=== PATIENT | female | born 1935 | race Caucasian/White ===

== ENCOUNTER 2017-12-03 22:58 | Inpatient (IN) ==
[2017-12-04] MEDS ORDERED: Acetaminophen 325 MG Tablet PO PRN (03:09)
[2017-12-04 10:06] LABS: Baso % (Auto) 0.7 % (0.0-2.0); Eos # (Auto) 0.1 th/mm3 (0.0-0.4); Eos % (Auto) 1.1 % (0.0-4.0); Hemoglobin 13.8 gm/dL (11.6-15.3); Lymph # (Auto) 1.9 th/mm3 (1.0-4.8); Lymph % (Auto) 30.9 % (9.0-44.0); Mean Corpuscular HGB Conc 32.9 % (32.0-36.0); Mean Corpuscular Hemoglobin 32.8 pg (27.0-34.0); Mean Corpuscular Volume 99.7 fL (80.0-100.0); Mean Platelet Volume 9.3 fL (7.0-11.0); Mono # (Auto) 0.6 th/mm3 (0.0-0.9); Mono % (Auto) 9.3 % (0.0-8.0); Neut # (Auto) 3.6 th/mm3 (1.8-7.7); Platelet Count 178 th/mm3 (150-450); Red Blood Count 4.21 mil/mm3 (4.00-5.30); Red Cell Distribution Width 13.9 % (11.6-17.2); White Blood Count 6.2 th/mm3 (4.0-11.0)
[2017-12-04 10:31] LABS: Albumin 3.8 g/dL (3.4-5.0); Anion Gap 10 meq/L (5-15); Aspartate Aminotransferase 15 U/L (15-37); Blood Urea Nitrogen 18 mg/dL (7-18); Calcium 9.5 mg/dL (8.5-10.1); Chloride 106 meq/L (98-107); Glomerular Filtration Rate 37 mL/min (>89); Glucose,Random 101 mg/dL (74-106); Potassium 3.6 meq/L (3.5-5.1); Sodium 142 meq/L (136-145)
[2017-12-04 10:32] LABS: Alanine Aminotransferase 12 U/L (10-53)
[2017-12-04 10:33] LABS: Magnesium 1.9 mg/dL (1.5-2.5)
[2017-12-04 10:34] LABS: Alkaline Phosphatase 102 U/L (45-117)
[2017-12-04 10:42] LABS: Thyroid Stimulating Hormone 1.96 uIU/mL (0.358-3.740)
--- NOTE | 2017-12-04 14:05 | P.CONIM ---
History of Present Illness Service: [facility] Consult date: 12/04/17 Reason for Consult: UTI, HTN, elevated creat, medical management Primary Care Provider: Oracio Granger Chief Complaint: chronic pain History of Present Illness: This is an 82 years old female with past medical history of peripheral neuropathy, aneurysm of thoracic aorta, obstructive sleep apnea, osteoarthritis , hypertension, allergic rhinitis, attention deficit disorder, anxiety and depression, who presented to [facility] ED with the complaints of altered mental status. Patient reported to the ED staff that she "no longer wants to live" and that she was a burden to her daughter. It was also reported by the daughter the a week ago she had hallucination and believed that the SAT team was outside with her grandson who was holding a gun. The daughter reported that her suicidal ideation was not new. Patient was evaluated and treated for UTI at the [facility] ED and was transferred her to [facility] for evaluation and management other hallucination and suicidal ideation. Patient is being seen by us, the Medicine team for medical management. Patient seen and evaluated sitting int he side of the bed, stated she lives in [facility]. Patient complaints of left shoulder pain which is chronic for her , she had a fall 4 years ago that needed to have a left shoulder surgery. Patient stated she has been going to the pain clinic but stopped but stopped going, stated "it's too much.". She stated her pain was relieved with a patch, and stated she does not want to take the [place], stated she does not want to be addicted to it. Patient denies any head ache, fever or chills, denies any nausea or vomiting, denies diarrhea or constipation. Pat was not able to identify the other medications she was taking, stated she was taking a bunch but do not remember the names. Patient was not able to state her past medical history other than the shoulder surgery and bilateral knee surgery. Most of the past medical history was obtained from the [facility] record. Review of Systems All other systems reviewed negative except as stated in [facility] - History History Provided By: Patient - Medical History Medical History: Medical History (Last Updated 12/04/17 @ 13:44 by EMILY Monsivais) Aneurysm of thoracic aorta Anxiety Attention deficit disorder Depression Hypertension Osteoarthritis Peripheral neuropathy - Surgical History Surgical History: Surgical History (Last Updated 12/04/17 @ 04:06 by Gita Felix RN) History of bilateral knee arthroplasty History of herniorrhaphy History of total thyroidectomy S/P aneurysm repair - Family History Family History: Family History (Last Updated 12/04/17 @ 04:09 by Gita Felix RN) Father Depression Brother Bipolar 1 disorder - Tobacco History Smoking Status: Never smoker - Alcohol History How Often Do You Have a Drink Containing Alcohol: Never - Substance Use History Substance History: No History of Abuse - Immunization History Tetanus Immunization: Unsure Hx Influenza Vaccine This Season: Yes Medications and Allergies Active Medications: Active Medications Acetaminophen (Tylenol) 650 mg PO Q4H PRN PRN Reason: Pain 1-5 or Temp >101F Al Hydrox/Mg Hydrox/Simethicone (Mag-Al Plus Susp Liq) 30 ml PO Q6H PRN PRN Reason: DYSPEPSIA Al Hydroxide/Mg Hydroxide (Milk Of Magnesia Liq) 30 ml PO DAILY PRN PRN Reason: CONSTIPATION Clonidine HCl (Catapres) 0.1 mg PO Q6H PRN PRN Reason: HYPERTENSION Allergies Allergy/AdvReac Type Severity Reaction Status Date / Time No Known Allergies Allergy Unverified 12/04/17 02:13 Home Medications Medication Instructions Recorded Confirmed Type alprazolam [Xanax] 0.25 mg PO Q8HR PRN 12/04/17 12/04/17 History duloxetine [Cymbalta] 30 mg PO BID 12/04/17 12/04/17 History gabapentin 400 mg PO TID 12/04/17 12/04/17 History hydrocodone bitartrate [Zohydro ER] 10 mg PO Q8H PRN 12/04/17 12/04/17 History levothyroxine 25 mcg PO DAILY 12/04/17 12/04/17 History Exam Vital signs: Vital Signs 12/04/17 00:30 12/04/17 03:07 12/04/17 06:00 Temperature 98.0 F 97.6 F Pulse Rate 95 H 74 Respiratory Rate 18 16 18 Blood Pressure 131/91 H 106/58 L Pulse Oximetry 96 Intake & Output 12/03/17 12/04/17 12/04/17 18:59 06:59 18:59 Intake Total 240 / 240 Balance 240 / 240 Weight 64.864 kg Intake: Oral 240 / 240 Other: Weight On Admission 64.864 kg Narrative: GENERAL: awake, alert and oriented x 3, well built, well nourished, with no apparent distress SKIN: Warm and dry. left shoulder and bilateral knee old and healed surgical incision scars HEAD: Atraumatic. Normocephalic. EYES: Pupils equal and round. No scleral icterus. No injection or drainage. ENT: No nasal bleeding or discharge. Mucous membranes pink and moist. NECK: Trachea midline. No JVD. CARDIOVASCULAR: Regular rate and rhythm. RESPIRATORY: No accessory muscle use. Clear to auscultation. Breath sounds equal bilaterally. GASTROINTESTINAL: Abdomen soft, non-tender, nondistended. Hepatic and splenic margins not palpable. MUSCULOSKELETAL: Extremities without clubbing, cyanosis, or edema. left upper extremities limited range of motion, right hand contraction NEUROLOGICAL: Awake and alert. No obvious cranial nerve deficits. Motor grossly within normal limits. Normal speech. PSYCHIATRIC: Appropriate mood and affect; insight and judgment unrealiable, cooperative, tearful Results - Labs CBC & Chem 7: 12/04/17 09:47 12/04/17 09:47 Labs: Laboratory Results - last 24 hr 12/04/17 12/04/17 12/04/17 09:47 09:47 09:47 WBC 6.2 RBC 4.21 Hgb 13.8 Hct 42.0 MCV 99.7 MCH 32.8 MCHC 32.9 RDW 13.9 Plt Count 178 MPV 9.3 Neut % (Auto) 58.0 Lymph % (Auto) 30.9 [place] % (Auto) 9.3 H Eos % (Auto) 1.1 Baso % (Auto) 0.7 Neut # (Auto) 3.6 Lymph # (Auto) 1.9 [place] # (Auto) 0.6 Eos # (Auto) 0.1 Baso # (Auto) 0.0 WBC Differential . Differential Comment Auto diff final Sodium 142 Potassium 3.6 Chloride 106 Carbon Dioxide 26.0 Anion Gap 10 BUN 18 Creatinine 1.36 H Estimated GFR 37 L Random Glucose 101 Calcium 9.5 Phosphorus Magnesium Total Bilirubin 0.6 AST 15 ALT 12 Alkaline Phosphatase 102 Total Protein 7.0 Albumin 3.8 TSH Free T4 1.12 12/04/17 09:47 WBC RBC Hgb Hct MCV MCH MCHC RDW Plt Count MPV Neut % (Auto) Lymph % (Auto) [place] % (Auto) Eos % (Auto) Baso % (Auto) Neut # (Auto) Lymph # (Auto) Norton # (Auto) Eos # (Auto) Baso # (Auto) WBC Differential Differential Comment Sodium Potassium Chloride Carbon Dioxide Anion Gap BUN Creatinine Estimated GFR Random Glucose Calcium Phosphorus 3.0 Magnesium 1.9 Total Bilirubin AST ALT Alkaline Phosphatase Total Protein Albumin TSH 1.960 Free T4 Assessment and Plan - Assessment (1) UTI (urinary tract infection) Code(s): N39.0 - Urinary tract infection, site not specified Status: Acute (2) Hypertension Code(s): I10 - Essential (primary) hypertension Status: Acute (3) Peripheral neuropathy Code(s): G62.9 - Polyneuropathy, unspecified Status: Acute (4) Chronic pain Code(s): G89.29 - Other chronic pain Status: Acute (5) Suicidal ideation Code(s): R45.851 - Suicidal ideations Status: Acute (6) Anxiety Code(s): F41.9 - Anxiety disorder, unspecified Status: Acute (7) Depression Code(s): F32.9 - Major depressive disorder, single episode, unspecified Status : Acute (8) Acute renal insufficiency Code(s): N28.9 - Disorder of kidney and ureter, unspecified Status: Acute - Plan This is an 82 years old female with past medical history of peripheral neuropathy, aneurysm of thoracic aorta, obstructive sleep apnea, osteoarthritis , hypertension, allergic rhinitis, attention deficit disorder, anxiety and depression, who presented to [facility] ED with the complaints of altered mental status. Patient reported to the ED staff that she "no longer wants to live" and that she was a burden to her daughter. It was also reported by the daughter the a week ago she had hallucination and believed that the SAT team was outside with her grandson who was holding a gun. The daughter reported that her suicidal ideation was not new. Patient was evaluated and treated for UTI at the [facility] ED and was transferred her to [facility] for evaluation and management hallucination and suicidal ideation. Patient is being seen by us, the Medicine team for medical management. UTI (urinary tract infection) Code(s): N39.0 - Urinary tract infection, site not specified Status: Acute Bacteuria -send urine for UA with C & S if indicated -monitor signs and symptoms -s/p Rocephine Hypertension Code(s): I10 - Essential (primary) hypertension Status: Acute -BP slightly elevated on admission, better this morning, not on any blood pressure medication at home from the medication list, patient does not remember medications taking at home -monitor BP, -clonidine prn, will consider starting on Lisinopril of elevated BP Peripheral neuropathy Code(s): G62.9 - Polyneuropathy, unspecified Status: Acute -acute on chronic, -will hold off on home neurontin due to renal insufficiency Chronic pain Code(s): G89.29 - Other chronic pain Status: Acute - add prn [place] Acute renal insufficiency Code(s): N28.9 - Disorder of kidney and ureter, unspecified Status: Acute likely related to UTI -createnin 1.36 -avoid nephrotixins -monitor BMP Attention Deficit Disorder/Anxiety/Depression/Suicidal Ideation - management by the Psychiatry Team DVT Prophylaxis: increase ambulation Discussed Condition With: patient, nurse & Dr Lilly
[2017-12-04] MEDS ORDERED: HYDROCODONE BITARTRATE 10 MG PO PRN (14:12)
--- NOTE | 2017-12-04 16:25 | P.HPPSY ---
Provisional Diagnosis Admission Date: December 04, 2017 00:30 [place] I.: Unspecified psychosis Competence Certification of Person's Competence To Provide Express and Informed Consent I have personally examined Marimar Woods, a person being served at [facility] on, December 04, 2017 1557. Express and informed consent means consent voluntarily given in writing, by a competent person, after sufficient explanation and disclosure of the subject matter involved to enable the person to make a knowing and willful decision without any element of force, fraud, deceit, duress, or other form of constraint or coercion. This person is 18 years of age or older, is not now known to be incompetent to consent to treatment with a guardian advocate, and does not have a health care surrogate or proxy currently making medical treatment decisions. I have found this person to be one of the following: [] Competent to provide express and informed consent, as defined above, for voluntary admission to this facility and is competent to provide express and informed consent for treatment. He/she has the consistent capacity to make well reasoned, willful, and knowing decisions concerning his or her medical or mental health treatment. The person fully and consistently understands the purpose of the admission for examination/placement and is fully capable of personally exercising all rights assured under [place]xxx] Incompetent to provide express and informed consent to voluntary admission , and this is incompetent to provide express and informed consent to treatment. The person must be transferred to involuntary status and a petition for a guardian advocate filed with the Circuit Court. [] Refusing to provide express and informed consent to voluntary admission but is competent to provide express and informed consent for treatment. The person must be discharged or transferred to involuntary status. Form shall be completed within 24 hours of a person's arrival at the receiving facility and filed in the clinical record of each person: 1. Admitted on a voluntary basis 2. Permitted to provide express and informed consent to his/her own treatment 3. Allowed to transfer from involuntary to voluntary status 4. Prior to permitting a person to consent to his or her own treatment after having been previously found incompetent to consent to treatment. History of Present Illness Capacity: Lacks capacity History of Present Illness: Patient is a 82-year-old woman, , has 1 daughter, domiciled with daughter, with a past psychiatric history of depression and anxiety, no previous psychiatric admissions, no previous suicide attempts no history of self -injurious behavior, no substance use history, past mental history significant for peripheral neuropathy, aneurysm of thoracic aorta, obstructive sleep apnea, osteoarthritis, hypertension, allergic rhinitis, who presented to [facility] ED with the complaints of altered mental status, hallucinations and suicidal ideation in the context of recent UTI which patient was admitted to the inpatient psychiatry unit for further evaluation and management. As per chart patient was transferred from [facility] after having been sent to the ED from primary care office. Discussion with nursing staff reported that patient had been noted to be tearful throughout the day. Patient was found heavily on unit noted B, cooperative. Patient states that she has not slept for days (-) stating "I am nervous about myself and I cannot remember stuff" . Patient reports having decreased energy appetite along with some loose stool that her mood has been "terrible, sad". Patient states that her worry is that her daughter will lose the house. Patient states that she had been thinking about hoping to sleep left lower taker. Patient states that she would have Medicare Medicaid she would have the services at home and would not have these thoughts of wanting to be any longer. Collateral information obtained by patient's daughter stated that the patient for the past week has been hallucinating, having visual hallucinations patient's father in the hallway and noticing recently having to require assistance more and more. She states that patient would be able to do less and less in terms of activities. He reports that yesterday she had suicidal ideation and had taken patient to her primary care doctor who recommended patient be brought to the ED. Family psychiatric history: Daughter with bipolar disorder, father with schizophrenia, no suicides in the family. Past psychiatric history: Previous psychiatric diagnoses depression and anxiety , no prior psychiatric admissions, suicide attempts or self-injurious behavior. Patient denies any history of abuse. Currently without any mental provider, reports previously being on Cymbalta and Xanax in the past. Past Hernandez history: Hypertension, hypothyroidism Allergies: NKDA Social history: , has 1 daughter whom she lives with. Collateral contact: Brittney Lazar (daughter) [phone]. - Inpatient Certification I certify that the inpatient services were ordered in accordance with Medicare regulations governing the order. This includes certification that hospital inpatient services are reasonable and necessary and in the case of services not specified as inpatient-only under 42 CFR 419.22(n), that they are appropriately provided as inpatient services in accordance to with the 2-midnight benchmark under 43 CFR 412.3(e) I certify that inpatient psychiatric hospital services are medically necessary. Evaluation and treatment and/or diagnostic testing are expected to improve the patient's condition. The patient needs on a daily basis, active treatment furnished directly by or requiring the supervision of inpatient psychiatric facility personnel. Estimated Total Length of Stay (Days): 5 Plans for Post Hospital Care: Home Review of Systems All other systems reviewed negative except as stated in [facility] - History History Provided By: Patient, Family Member, Medical Record - Medical History Medical History: Medical History (Last Updated 12/04/17 @ 13:44 by EMILY Monsivais) Aneurysm of thoracic aorta Anxiety Attention deficit disorder Depression Hypertension Osteoarthritis Peripheral neuropathy - Surgical History Surgical History: Surgical History (Last Updated 12/04/17 @ 04:06 by Gita Felix RN) History of bilateral knee arthroplasty History of herniorrhaphy History of total thyroidectomy S/P aneurysm repair - Family History Family History: Family History (Last Updated 12/04/17 @ 04:09 by Gita Felix RN) Father Depression Brother Bipolar 1 disorder - Tobacco History Smoking Status: Never smoker - Alcohol History How Often Do You Have a Drink Containing Alcohol: Never - Substance Use History Substance History: No History of Abuse - Immunization History Tetanus Immunization: Unsure Hx Influenza Vaccine This Season: Yes Quality Measures - Psychiatric History Psychological trauma history: denies Violence risk to others in the last 6 months: low Violence risk to self in the last 6 months: elevated due to recent suicide ideations - Substance Abuse History Drug or alcohol use in the past 12 months: denies - Patient Strengths Patient's strengths (minimum of 2): verbal and communicative Medications and Allergies Active Medications: Active Medications Acetaminophen (Tylenol) 650 mg PO Q4H PRN PRN Reason: Temp >101F Hydrocodone Bitart/Acetaminophen (Harvey 5/325) 1 tab PO Q4H PRN PRN Reason: pain 1-5 Al Hydrox/Mg Hydrox/Simethicone (Mag-Al Plus Susp Liq) 30 ml PO Q6H PRN PRN Reason: DYSPEPSIA Al Hydroxide/Mg Hydroxide (Milk Of Magnesia Liq) 30 ml PO DAILY PRN PRN Reason: CONSTIPATION Clonidine HCl (Catapres) 0.1 mg PO Q6H PRN PRN Reason: HYPERTENSION Diphenhydramine HCl (Benadryl) 25 mg PO HS PRN PRN Reason: INSOMNIA Duloxetine HCl (Cymbalta) 30 mg PO DAILY [facility] Hydroxyzine HCl (Atarax) 25 mg PO Q8H PRN PRN Reason: ANXIETY Levothyroxine Sodium (Synthroid) 25 mcg PO DAILY@0600 [facility] Quetiapine Fumarate (Seroquel) 12.5 mg PO BID [facility] Allergies Allergy/AdvReac Type Severity Reaction Status Date / Time No Known Allergies Allergy Unverified 12/04/17 02:13 Home Medications Medication Instructions Recorded Confirmed Type alprazolam [Xanax] 0.25 mg PO Q8HR PRN 12/04/17 12/04/17 History duloxetine [Cymbalta] 30 mg PO BID 12/04/17 12/04/17 History gabapentin 400 mg PO TID 12/04/17 12/04/17 History hydrocodone bitartrate [Zohydro ER] 10 mg PO Q8H PRN 12/04/17 12/04/17 History levothyroxine 25 mcg PO DAILY 12/04/17 12/04/17 History Results - Labs CBC & Chem 7: 12/04/17 09:47 12/04/17 09:47 Labs: Laboratory Results - last 24 hr 12/04/17 12/04/17 12/04/17 09:47 09:47 09:47 WBC 6.2 RBC 4.21 Hgb 13.8 Hct 42.0 MCV 99.7 MCH 32.8 MCHC 32.9 RDW 13.9 Plt Count 178 MPV 9.3 Neut % (Auto) 58.0 Lymph % (Auto) 30.9 [place] % (Auto) 9.3 H Eos % (Auto) 1.1 Baso % (Auto) 0.7 Neut # (Auto) 3.6 Lymph # (Auto) 1.9 [place] # (Auto) 0.6 Eos # (Auto) 0.1 Baso # (Auto) 0.0 WBC Differential . Differential Comment Auto diff final Sodium 142 Potassium 3.6 Chloride 106 Carbon Dioxide 26.0 Anion Gap 10 BUN 18 Creatinine 1.36 H Estimated GFR 37 L Random Glucose 101 Calcium 9.5 Phosphorus Magnesium Total Bilirubin 0.6 AST 15 ALT 12 Alkaline Phosphatase 102 Total Protein 7.0 Albumin 3.8 TSH Free T4 1.12 12/04/17 09:47 WBC RBC Hgb Hct MCV MCH MCHC RDW Plt Count MPV Neut % (Auto) Lymph % (Auto) [place] % (Auto) Eos % (Auto) Baso % (Auto) Neut # (Auto) Lymph # (Auto) [place] # (Auto) Eos # (Auto) Baso # (Auto) WBC Differential Differential Comment Sodium Potassium Chloride Carbon Dioxide Anion Gap BUN Creatinine Estimated GFR Random Glucose Calcium Phosphorus 3.0 Magnesium 1.9 Total Bilirubin AST ALT Alkaline Phosphatase Total Protein Albumin TSH 1.960 Free T4 Exam Vital signs: Vital Signs 12/04/17 00:30 12/04/17 03:07 12/04/17 06:00 Temperature 98.0 F 97.6 F Pulse Rate 95 H 74 Respiratory Rate 18 16 18 Blood Pressure 131/91 H 106/58 L Pulse Oximetry 96 Intake & Output 12/03/17 12/04/17 12/04/17 18:59 06:59 18:59 Intake Total 480 / 480 Balance 480 / 480 Weight 64.864 kg Intake: Oral 480 / 480 Other: Weight On Admission 64.864 kg Narrative: Not noted to be in acute distress, no gross motor abnormalities, no tremor or EPS, no psychomotro agitation aor retardation. - Constitutional no acute distress, cooperative Mental Status Examination Appearance: Appropriate Consciousness: Alert Orientation: Person Motor Activity: Normal gait (with walker) Speech: Unremarkable Language: Adequate Fund of Knowledge: Inadequate Attention and Concentration: Adequate Memory: Impaired Mood: Sad Affect: Sad, Other (tearful) Thought Process & Associations: Linear Thought Content: Preoccupations (with psychosocial stressors) Hallucination Type: Auditory, Visual Delusion Type: Paranoid Suicidal Ideation: Yes Suicidal Plan: No Suicidal Intention: No Homicidal Ideation: No Homicidal Plan: No Homicidal Intention: No Insight: Poor Judgment: Poor Assessment and Plan - Assessment (1) Unspecified psychosis Code(s): F29 - Unspecified psychosis not due to a substance or known physiological condition Status: Acute - Plan Plan: Estimated LOS: [] days Patient is a 82-year-old woman, , domiciled with daughter, with a past psychiatric history of depression, anxiety, no previous psychiatric admissions, no previous suicide attempt or self-injurious behavior was brought under [place] act due to patient endorsing suicide ideations as well as endorsing hallucinations which patient was admitted to the inpatient psychiatry for further evaluation and management. Patient this time noted with depressed mood , dysphoric, tearful, recent period of poor sleep, auditory visual hallucinations as well as delusions patient requires inpatient psychiatric admission for stabilization. Patient will be admitted under involuntary hospitalization, second opinion requested. Patient's daughter will serve as healthcare surrogate and guardian advocate. Start quetiapine 12.5mg PO BID for psychosis, restart duloxetine 30mg PO daily for depression, diphenhydramine 25mg PO HS for sleep disturbance. Monitor for orthostatic hypotension. Hospitalist input appreciated. Continue to monitor mood and behavior. Discharge planning in progress. Justification for Continued Inpatient Stay: At risk for further decompensation at lower level of care.
[2017-12-04] MEDS: QUEtiapine 25 MG Tablet PO SCH (22:08)
[2017-12-05] MEDS: QUEtiapine 25 MG Tablet PO SCH ×2 (08:08→20:08)
[2017-12-05 09:10] LABS: Hematocrit 41.3 % (35.0-46.0); Hemoglobin 13.3 gm/dL (11.6-15.3); Mean Corpuscular HGB Conc 32.3 % (32.0-36.0); Mean Corpuscular Hemoglobin 32.5 pg (27.0-34.0); Mean Corpuscular Volume 100.7 fL (80.0-100.0); Mean Platelet Volume 9.3 fL (7.0-11.0); Platelet Count 165 th/mm3 (150-450); Red Cell Distribution Width 13.5 % (11.6-17.2); White Blood Count 4.5 th/mm3 (4.0-11.0)
[2017-12-05 09:26] LABS: Albumin 3.5 g/dL (3.4-5.0); Anion Gap 9 meq/L (5-15); Aspartate Aminotransferase 12 U/L (15-37); Blood Urea Nitrogen 15 mg/dL (7-18); Calcium 9.9 mg/dL (8.5-10.1); Carbon Dioxide 25.3 meq/L (21.0-32.0); Chloride 109 meq/L (98-107); Glomerular Filtration Rate 48 mL/min (>89); Glucose,Random 91 mg/dL (74-106); Magnesium 1.9 mg/dL (1.5-2.5); Sodium 143 meq/L (136-145)
[2017-12-05 09:28] LABS: Alanine Aminotransferase 11 U/L (10-53)
[2017-12-05 09:30] LABS: Alkaline Phosphatase 91 U/L (45-117); Total Protein 6.5 g/dL (6.4-8.2)
[2017-12-05] MEDS: Cholestyramine Light 4 GM Packet PO SCH ×2 (14:40→19:00)
--- NOTE | 2017-12-05 14:43 | P.PNIM ---
Subjective Interval history: follow up hypertension, peripheral neuropathy, aneurysm of thoracic aorta, obstructive sleep apnea, osteoarthritis, allergic rhinitis, attention deficit disorder, anxiety and depression. Patient seen and examined, sitting in the chair in the day room with the Psych staff. patient complaints of having some loose stools 2 x today, patient stated she has been having loose stool for a while from home. Patient stated the stool is color brown. Patient denies any nausea or vomiting, denies any fever or chills. Patient stated left arm pain is better, taking the [place] , just want the low dose. Physical Exam Vital signs: Vital Signs 12/04/17 18:00 12/05/17 06:07 Temperature 97.3 F L 98.4 F Pulse Rate 80 73 Respiratory Rate 18 18 Blood Pressure 139/72 115/59 L Pulse Oximetry 97 96 Intake & Output 12/04/17 12/05/17 12/05/17 18:59 06:59 18:59 Intake Total 840 / 840 Balance 840 / 840 Intake: Oral 840 / 840 Other: Date of Last Bowel Movement 12/04/17 12/05/17 Narrative: GENERAL: awake, alert and oriented x 3, well built, well nourished, with no apparent distress SKIN: Warm and dry. left shoulder and bilateral knee old and healed surgical incision scars HEAD: Atraumatic. Normocephalic. EYES: Pupils equal and round. No scleral icterus. No injection or drainage. ENT: No nasal bleeding or discharge. Mucous membranes pink and moist. NECK: Trachea midline. No JVD. CARDIOVASCULAR: Regular rate and rhythm. RESPIRATORY: No accessory muscle use. Clear to auscultation. Breath sounds equal bilaterally. GASTROINTESTINAL: Abdomen soft, non-tender, nondistended. Hepatic and splenic margins not palpable. MUSCULOSKELETAL: Extremities without clubbing, cyanosis, or edema. left upper extremities limited range of motion, right hand contraction NEUROLOGICAL: Awake and alert. No obvious cranial nerve deficits. generalized weakness, left upper arm with limited range of motion. Normal speech. PSYCHIATRIC: Appropriate mood and affect; insight and judgment unrealiable, cooperative but tearful Results - Labs CBC & Chem 7: 12/05/17 08:08 12/05/17 08:08 Laboratory Results - last 24 hr 12/04/17 12/05/17 12/05/17 09:47 08:08 08:08 WBC 4.5 RBC 4.10 Hgb 13.3 Hct 41.3 MCV 100.7 H MCH 32.5 MCHC 32.3 RDW 13.5 Plt Count 165 MPV 9.3 Sodium 143 Potassium 4.0 Chloride 109 H Carbon Dioxide 25.3 Anion Gap 9 BUN 15 Creatinine 1.09 H Estimated GFR 48 L Random Glucose 91 Hemoglobin A1c 5.0 Calcium 9.9 Magnesium 1.9 Total Bilirubin 0.8 AST 12 L ALT 11 Alkaline Phosphatase 91 Total Protein 6.5 Albumin 3.5 Assessment and Plan - Assessment (1) UTI (urinary tract infection) Code(s): N39.0 - Urinary tract infection, site not specified Status: Acute (2) Hypertension Code(s): I10 - Essential (primary) hypertension Status: Acute (3) Peripheral neuropathy Code(s): G62.9 - Polyneuropathy, unspecified Status: Acute (4) Chronic pain Code(s): G89.29 - Other chronic pain Status: Acute (5) Suicidal ideation Code(s): R45.851 - Suicidal ideations Status: Acute (6) Anxiety Code(s): F41.9 - Anxiety disorder, unspecified Status: Acute (7) Depression Code(s): F32.9 - Major depressive disorder, single episode, unspecified Status : Acute (8) Acute renal insufficiency Code(s): N28.9 - Disorder of kidney and ureter, unspecified Status: Acute - Plan This is an 82 years old female with past medical history of peripheral neuropathy, aneurysm of thoracic aorta, obstructive sleep apnea, osteoarthritis , hypertension, allergic rhinitis, attention deficit disorder, anxiety and depression, who presented to [facility] ED with the complaints of altered mental status. Patient reported to the ED staff that she "no longer wants to live" and that she was a burden to her daughter. It was also reported by the daughter the a week ago she had hallucination and believed that the SAT team was outside with her grandson who was holding a gun. The daughter reported that her suicidal ideation was not new. Patient was evaluated and treated for UTI at the [facility] ED and was transferred her to [facility] for evaluation and management hallucination and suicidal ideation. Patient is being seen by us, the Medicine team for medical management. Hypertension Code(s): I10 - Essential (primary) hypertension Status: Acute -BP slightly elevated on admission, better this morning, not on any blood pressure medication at home from the medication list, patient does not remember medications taking at home, blood pressure now is in the low side -monitor BP, -clonidine prn, will consider starting on Lisinopril of elevated BP Peripheral neuropathy Code(s): G62.9 - Polyneuropathy, unspecified Status: Acute -acute on chronic, -will hold off on home neurontin due to renal insufficiency UTI (urinary tract infection) Code(s): N39.0 - Urinary tract infection, site not specified Status: Acute Bacteuria -send urine for UA with C & S if indicated -monitor signs and symptoms -s/p Rocephine Chronic pain Code(s): G89.29 - Other chronic pain Status: Acute - add prn Grass Range Acute renal insufficiency Code(s): N28.9 - Disorder of kidney and ureter, unspecified Status: Acute likely related to UTI -creatinine improved, today 1.09 -avoid nephrotixins -monitor BMP Diarrhea -add questran -monitor electrolytes, BMP and Mg Hypothyroidism -TSH 1.960 -continue synthroid Attention Deficit Disorder/Anxiety/Depression/Suicidal Ideation - management by the Psychiatry Team DVT Prophylaxis: increase ambulation Discussed Condition With: patient and nurse
--- NOTE | 2017-12-05 15:44 | P.DIET ---
Nutritional Evaluation Type of nutrition evaluation: initial Nutrition consult regarding: Diet Evaluation Nutrition screening: [facility] Screening comments: 12/05/17 [facility] Poor PO Intake Subjective Subjective Comments: Pt sitting in the dayroom after lunch today. Pt is hyper focused on [place] and her loose stools. Pt does not want to discuss her diet because, "even a sip of water makes me feel sick". Objective - Diagnosis Unspecified Psychosis - Objective [place] body weight: 47.7 kg % IBW: 136 Body Weight Used for Calculations: IBW (47.7kg) Energy Needs - Lower Range (kCal/kg): 28 Energy Needs - Upper Range (kCal/kg): 33 Lower Limit kCal/kg (kCals): 1,336 Upper Limit kCal/kg (kCals): 1,574 Lower Limit Protein Factor (Grams per Kg): 1.2 Upper Limit Protein Factor (Grams per Kg): 1.4 Lower Protein Needs (Protein): 57 Upper Protein Needs (Protein): 67 Fluid Factor (ml/kg): 33 Estimated Fluid Needs (ml): 1,574 Dietitian Reviewed in Medical Record: Current diet, Curent medications, Intake & Output, Labs, Medical history Diet Order: Cardiac Diet Oral Diet Intake Amount: Fair 50-75% Objective Comments: PMH: Aneurysm, Anxiety, Attention Deficit DO, Depression, HTN, Osteoarthritis, Obstructive Sleep Apnea, Peripheral Neuropathy A1C 5.0, Creatinine 1.09, estGFR 48, Glucose 91 Meds Include: [place], Questran, Cymbalta, Catapres, Seroquel, Synthroid Assessment Assessment: Pt is at nutritional risk r/t poor po intake 50% or less for some meals here. Pt is not receptive to discussing her diet or food preferences during this visit. Plan to monitor pt's po intake and discuss the addition of an oral nutritional supplement at a later time. Labs reviewed. Dietitian will follow. Recommendations: 1. Pt is not receptive to discussing her diet or food preferences during this visit 2. Plan to monitor pt's po intake and discuss the addition of an oral nutritional supplement at a later time 3. Dietitian will follow Dietitian to Monitor: Lab values, Renal labs, Intake & Output, Diet tolerance, Weight change, PO Intake, Medical course
--- NOTE | 2017-12-05 17:40 | P.CONPSY ---
Provisional Diagnosis Admission Date: December 04, 2017 00:30 [place].: Unspecified psychosis History of Present Illness Service: [facility] Primary Care Provider: Oracio Granger Chief Complaint: chronic pain History of Present Illness: Patient is a 82-year-old woman, , has 1 daughter, domiciled with daughter, with a past psychiatric history of depression and anxiety, no previous psychiatric admissions, no previous suicide attempts no history of self -injurious behavior, no substance use history, past mental history significant for peripheral neuropathy, aneurysm of thoracic aorta, obstructive sleep apnea, osteoarthritis, hypertension, allergic rhinitis, who presented to [facility] ED with the complaints of altered mental status, hallucinations and suicidal ideation in the context of recent UTI which patient was admitted to the inpatient psychiatry unit for further evaluation and management. As per chart patient was transferred from [facility] after having been sent to the ED from primary care office. Discussion with nursing staff reported that patient had been noted to be tearful throughout the day. Patient was found heavily on unit noted B, cooperative. Patient states that she has not slept for days () stating "I am nervous about myself and I cannot remember stuff" . Patient reports having decreased energy appetite along with some loose stool that her mood has been "terrible, sad". Patient states that her worry is that her daughter will lose the house. Patient states that she had been thinking about hoping to sleep left lower taker. Patient states that she would have Medicare Medicaid she would have the services at home and would not have these thoughts of wanting to be any longer. Collateral information obtained by patient's daughter stated that the patient for the past week has been hallucinating, having visual hallucinations patient's father in the hallway and noticing recently having to require assistance more and more. She states that patient would be able to do less and less in terms of activities. He reports that yesterday she had suicidal ideation and had taken patient to her primary care doctor who recommended patient be brought to the ED. Family psychiatric history: Daughter with bipolar disorder, father with schizophrenia, no suicides in the family. Past psychiatric history: Previous psychiatric diagnoses depression and anxiety , no prior psychiatric admissions, suicide attempts or self-injurious behavior. Patient denies any history of abuse. Currently without any mental provider, reports previously being on Cymbalta and Xanax in the past. Past Hernandez history: Hypertension, hypothyroidism Allergies: NKDA Social history: , has 1 daughter whom she lives with. Collateral contact: Brittney Lazar (daughter) [phone]. Patient is a 82 years old woman, , she is domiciled with her daughter, with a psychiatric history of anxiety and depression, she has no previous psychiatric admissions, no previous suicide attempts, she has medical history of peripheral neuropathy, thoracic aneurysm, or to arthritis, hypertension, admitted due to acute psychosis. The patient was seen today for his second opinion. She was interviewed in her room. The patient reports feeling better, good mood, however she reports that she has been having hallucinations. She says that she has been seeing things and hearing things, but she does not elaborate about the content and becomes quite paranoid when I asked her. Is fully oriented 3 PMFSH - History History Provided By: Patient - Medical History Medical History: Medical History (Last Updated 12/04/17 @ 13:44 by EMILY Monsivais) Aneurysm of thoracic aorta Anxiety Attention deficit disorder Depression Hypertension Osteoarthritis Peripheral neuropathy - Surgical History Surgical History: Surgical History (Last Updated 12/04/17 @ 04:06 by Gita Felix RN) History of bilateral knee arthroplasty History of herniorrhaphy History of total thyroidectomy S/P aneurysm repair - Family History Family History: Family History (Last Updated 12/04/17 @ 04:09 by Gita Felix RN) Father Depression Brother Bipolar 1 disorder - Tobacco History Smoking Status: Never smoker - Alcohol History How Often Do You Have a Drink Containing Alcohol: Never - Substance Use History Substance History: No History of Abuse - Immunization History Tetanus Immunization: Unsure Hx Influenza Vaccine This Season: Yes Medications and Allergies Active Medications: Active Medications Acetaminophen (Tylenol) 650 mg PO Q4H PRN PRN Reason: Temp >101F Hydrocodone Bitart/Acetaminophen ([place] 5/325) 1 tab PO Q4H PRN PRN Reason: pain 1-5 Last Admin: 12/05/17 15:31 Dose: 1 tab Al Hydrox/Mg Hydrox/Simethicone (Mag-Al Plus Susp Liq) 30 ml PO Q6H PRN PRN Reason: DYSPEPSIA Al Hydroxide/Mg Hydroxide (Milk Of Magnesia Liq) 30 ml PO DAILY PRN PRN Reason: CONSTIPATION Cholestyramine Resin (Questran Light 4 Gm Pkt) 4 gm PO TID [facility] Last Admin: 12/05/17 14:40 Dose: 4 gm Clonidine HCl (Catapres) 0.1 mg PO Q6H PRN PRN Reason: HYPERTENSION Diphenhydramine HCl (Benadryl) 25 mg PO HS PRN PRN Reason: INSOMNIA Duloxetine HCl (Cymbalta) 30 mg PO DAILY [facility] Last Admin: 12/05/17 08:08 Dose: 30 mg Hydroxyzine HCl (Atarax) 25 mg PO Q8H PRN PRN Reason: ANXIETY Levothyroxine Sodium (Synthroid) 25 mcg PO DAILY@0600 [facility] Last Admin: 12/05/17 06:23 Dose: 25 mcg Quetiapine Fumarate (Seroquel) 12.5 mg PO BID [facility] Last Admin: 12/05/17 08:08 Dose: 12.5 mg Allergies Allergy/AdvReac Type Severity Reaction Status Date / Time No Known Allergies Allergy Unverified 12/04/17 02:13 Home Medications Medication Instructions Recorded Confirmed Type alprazolam [Xanax] 0.25 mg PO Q8HR PRN 12/04/17 12/04/17 History duloxetine [Cymbalta] 30 mg PO BID 12/04/17 12/04/17 History gabapentin 400 mg PO TID 12/04/17 12/04/17 History hydrocodone bitartrate [Zohydro ER] 10 mg PO Q8H PRN 12/04/17 12/04/17 History levothyroxine 25 mcg PO DAILY 12/04/17 12/04/17 History Exam Vital signs: Vital Signs 12/04/17 18:00 12/05/17 06:07 Temperature 97.3 F L 98.4 F Pulse Rate 80 73 Respiratory Rate 18 18 Blood Pressure 139/72 115/59 L Pulse Oximetry 97 96 Intake & Output 12/04/17 12/05/17 12/05/17 18:59 06:59 18:59 Intake Total 840 / 840 Balance 840 / 840 Intake: Oral 840 / 840 Other: Date of Last Bowel Movement 12/04/17 12/05/17 Mental Status Examination Appearance: Appropriate Consciousness: Alert Orientation: Person Motor Activity: Normal gait (with walker) Speech: Unremarkable Language: Adequate Fund of Knowledge: Inadequate Attention and Concentration: Adequate Memory: Impaired Mood: Sad Affect: Sad, Other (tearful) Thought Process & Associations: Linear Thought Content: Preoccupations (with psychosocial stressors) Hallucination Type: Auditory, Visual Delusion Type: Paranoid Suicidal Ideation: Yes Suicidal Plan: No Suicidal Intention: No Homicidal Ideation: No Homicidal Plan: No Homicidal Intention: No Insight: Poor Judgment: Poor Assessment and Plan - Assessment (1) Unspecified psychosis Code(s): F29 - Unspecified psychosis not due to a substance or known physiological condition Status: Acute - Plan Plan: I have seen and examined this patient, reviewed documentation, I agree and concur with Dr. Lilly assessment and plan. Justification for Continued Inpatient Stay: Continue hospitalization
--- NOTE | 2017-12-05 20:18 | P.PNPSY ---
Subjective Remarks: Patient seen for follow, chart reviewed. Discussion reported the patient reported with improved mood, denying any perceptional disturbances. Patient was found in day room sitting hospital chair noted B, cooperative. Patient states that she is having some loose stools which have been contributing to her poor appetite recently. She states that her room is very cold but states having slept better last evening. She states her mood has been "tired" denying any perceptional services but continues report feeling a little sad, denying any suicidal ideations. Review of Systems All other systems reviewed negative except as stated in HPI Mental Status Examination Appearance: Appropriate Consciousness: Alert Orientation: Person Motor Activity: Normal gait (with walker) Speech: Unremarkable Language: Adequate Fund of Knowledge: Inadequate Attention and Concentration: Adequate Memory: Impaired Mood: Sad Affect: Sad Thought Process & Associations: Intact, Linear Thought Content: Preoccupations (with psychosocial stressors) Hallucination Type: None Delusion Type: Paranoid (Lessening) Suicidal Ideation: No Suicidal Plan: No Suicidal Intention: No Homicidal Ideation: No Homicidal Plan: No Homicidal Intention: No Insight: Poor Judgment: Poor Assessment and Plan - Assessment (1) Unspecified psychosis Code(s): F29 - Unspecified psychosis not due to a substance or known physiological condition Status: Acute - Plan Plan: Patient this time noted with less depressed mood, denying suicide ideations. Patient denies any perceptional disturbances. We will continue current treatment. We will continue to monitor mood and behavior. Hospitalist input appreciated. Discharge planning a progress. Justification for Continued Inpatient Stay: At risk for further decompensation if at lower level of care.
[2017-12-05 23:11] LABS: Bacteria,Urine Moderate /hpf; Clarity,Urine Cloudy (Clear); Color,Urine Amber (Yellw/Straw); Glucose,Urine (UA) Negative (Negative); Hyaline Casts,Urine 17 /lpf (0-3); Leukocyte Esterase,Urine Small (Negative); Mucus,Urine Few /lpf (Occasional); Nitrite,Urine Negative (Negative); Specific Gravity,Urine 1.025 (1.002-1.035); Squamous Epithelial Cell,Urine 10 /hpf (0-5); Transitional Epi Cells,Urine 1 /hpf
[2017-12-05 23:15] LABS: Bilirubin,Urine Negative (Negative); Ictotest,Urine Negative (Negative)
[2017-12-06 08:55] LABS: Calcium 10.1 mg/dL (8.5-10.1); Carbon Dioxide 26.7 meq/L (21.0-32.0); Magnesium 1.9 mg/dL (1.5-2.5)
[2017-12-06] MEDS: QUEtiapine 25 MG Tablet PO SCH ×2 (10:23→21:21)
[2017-12-06] MEDS: Cholestyramine Light 4 GM Packet PO SCH ×2 (10:31→12:02)
--- NOTE | 2017-12-06 12:46 | P.PNPSY ---
Subjective Remarks: Pt seen and discussed with staff. Chart reviewed. Pt has remained confused with cognitive impairment. She has been periodically refusing care and medications due to cognitive impairment, but today has been compliant. She reports that mood is better today. No SI/HI Mental Status Examination Appearance: Appropriate Consciousness: Alert Orientation: Person Motor Activity: Normal gait (with walker) Speech: Unremarkable Language: Adequate Fund of Knowledge: Inadequate Attention and Concentration: Adequate Memory: Impaired Mood: Sad Affect: Sad Thought Process & Associations: Intact, Linear Thought Content: Preoccupations (with psychosocial stressors) Hallucination Type: None Delusion Type: Paranoid (decreased) Suicidal Ideation: No Suicidal Plan: No Suicidal Intention: No Homicidal Ideation: No Homicidal Plan: No Homicidal Intention: No Insight: Poor Judgment: Poor Assessment and Plan - Assessment (1) Unspecified psychosis Code(s): F29 - Unspecified psychosis not due to a substance or known physiological condition Status: Acute - Plan Plan: continue current tx plan Justification for Continued Inpatient Stay: risk of decompensation
--- NOTE | 2017-12-06 14:44 | P.PNIM ---
Subjective Interval history: Follow up hypertension, peripheral neuropathy, obstructive sleep apnea, osteoarthritis, attention deficit disorder, anxiety and depression. Nurse reported patient has been complaining of the right hand to touch however was able to move around without complaints of pain. Patient seen and evaluated laying in bed, complains of left shoulder pain and left hand pain to touch. Patient stated pain relieved by the pain management medication she just taken the Stopover and now she feels better. Patient denies any headache or dizziness denies nausea or vomiting. Patient stated her loose stool is better it is form today. Denies any constipation. Patient denies any fever or chills Physical Exam Vital signs: Vital Signs 12/05/17 18:13 12/06/17 05:57 Temperature 97.4 F L 98.2 F Pulse Rate 98 H 71 Respiratory Rate 21 16 Blood Pressure 146/73 H 98/57 L Pulse Oximetry 95 95 Intake & Output 12/05/17 12/06/17 12/06/17 18:59 06:59 18:59 Other: Date of Last Bowel Movement 12/05/17 12/05/17 Narrative: GENERAL: awake, alert and oriented x 3, well built, well nourished, with no apparent distress SKIN: Warm and dry. left shoulder and bilateral knee old and healed surgical incision scars HEAD: Atraumatic. Normocephalic. EYES: Pupils equal and round. No scleral icterus. No injection or drainage. ENT: No nasal bleeding or discharge. Mucous membranes pink and moist. NECK: Trachea midline. No JVD. CARDIOVASCULAR: Regular rate and rhythm. RESPIRATORY: No accessory muscle use. Clear to auscultation. Breath sounds equal bilaterally. GASTROINTESTINAL: Abdomen soft, non-tender, nondistended. Hepatic and splenic margins not palpable. MUSCULOSKELETAL: Extremities without clubbing, cyanosis, or edema. left upper extremities limited range of motion, right hand contraction NEUROLOGICAL: Awake and alert. No obvious cranial nerve deficits. generalized weakness, left upper arm with limited range of motion. Normal speech. PSYCHIATRIC: Appropriate mood and affect; insight and judgment unrealiable, cooperative, not tearful today Results - Labs CBC & Chem 7: 12/05/17 08:08 12/06/17 07:58 Laboratory Results - last 24 hr 12/05/17 12/06/17 22:00 07:58 Sodium 140 Potassium 4.0 Chloride 106 Carbon Dioxide 26.7 Anion Gap 7 BUN 19 H Creatinine 1.42 H Estimated GFR 36 L Random Glucose 142 H Calcium 10.1 Magnesium 1.9 Urine Color Henna Urine Clarity Cloudy H Urine pH 5.0 Ur Specific [place] 1.025 Urine Protein 30 H Urine Glucose (UA) Negative Urine Ketones Trace H Urine Occult Blood Small H Urine Nitrate Negative Urine Bilirubin Negative Urine Ictotest Negative Urine Urobilinogen 2.0 H Ur Leukocyte Esterase Small H Urine RBC 13 H Urine WBC 43 H Ur Squamous Epith Cells 10 Ur Transition Epith Cell 1 Urine Bacteria Moderate H Hyaline Casts 17 Urine Mucus Few H Micro UA Comment Culture indicated Ur Microscopic Review Not Reportable Urine Culture Comments Culture indicated Microbiology 12/05/17 22:00 Clean Catch Urine Urine Culture - Preliminary Immature growth - reincubate Assessment and Plan - Assessment (1) UTI (urinary tract infection) Code(s): N39.0 - Urinary tract infection, site not specified Status: Acute (2) Hypertension Code(s): I10 - Essential (primary) hypertension Status: Acute (3) Peripheral neuropathy Code(s): G62.9 - Polyneuropathy, unspecified Status: Acute (4) Chronic pain Code(s): G89.29 - Other chronic pain Status: Acute (5) Suicidal ideation Code(s): R45.851 - Suicidal ideations Status: Acute (6) Anxiety Code(s): F41.9 - Anxiety disorder, unspecified Status: Acute (7) Depression Code(s): F32.9 - Major depressive disorder, single episode, unspecified Status : Acute (8) Acute renal insufficiency Code(s): N28.9 - Disorder of kidney and ureter, unspecified Status: Acute - Plan This is an 82 years old female with past medical history of peripheral neuropathy, aneurysm of thoracic aorta, obstructive sleep apnea, osteoarthritis , hypertension, allergic rhinitis, attention deficit disorder, anxiety and depression, who presented to [facility] ED with the complaints of altered mental status. Patient reported to the ED staff that she "no longer wants to live" and that she was a burden to her daughter. It was also reported by the daughter the a week ago she had hallucination and believed that the SAT team was outside with her grandson who was holding a gun. The daughter reported that her suicidal ideation was not new. Patient was evaluated and treated for UTI at the [facility] ED and was transferred her to [facility] for evaluation and management hallucination and suicidal ideation. Patient is being seen by us, the Medicine team for medical management. Hypertension -BP slightly elevated on admission, better this morning, not on any blood pressure medication at home from the medication list, patient does not remember medications taking at home, blood pressure now is in the low side -monitor BP, -clonidine prn, will consider starting on Lisinopril of elevated BP Peripheral neuropathy -acute on chronic, -will hold off on home neurontin due to renal insufficiency -As needed pain medication UTI (urinary tract infection) Bacteuria, s/p Rocephine x 1 -UA showing some bacteria and leukocytes, symptomatic with confusion and weakness -Started on amoxicillin clavulanate, pending culture and sensitivity. -monitor signs and symptoms Chronic pain - add prn Stopover -Add lidocaine patch Acute renal insufficiency likely related to UTI -Worsening creatinine -avoid nephrotixins -monitor BMP Diarrhea -Improving, stools formed today -add questran -monitor electrolytes, BMP and Mg Hypothyroidism -TSH 1.960 -continue synthroid, - monitor TSH and T4 Attention Deficit Disorder/Anxiety/Depression/Suicidal Ideation - management by the Psychiatry Team DVT Prophylaxis: increase ambulation Code Status: Full code Discussed Condition With: Patient and nurse
[2017-12-06] MEDS: Amoxicillin/Clavulanate 500/125 MG Tablet PO SCH (21:21)
--- NOTE | 2017-12-07 08:35 | P.PNPSY ---
Subjective Remarks: Medical record reviewed and discussed with nursing staff. Patient in day room eating breakfast. She is ambulating well and does use a walker. She continues to complain about left hand pain and has a knitted hat covering her hand. Hospitalist has been in to see her and they have held her Neurontin due to renal insufficiency. She has a UTI and is under treatment with Rocephin. Celia RN and Nany RN share that patient has no motivation and does not like to ambulate. She spends a great deal of time sitting. Patient is asking about how she goes about writing a will. She states that her mood is stable. Sleeping well. Review of Systems All other systems reviewed negative except as stated in HPI Mental Status Examination Appearance: Appropriate Consciousness: Alert Orientation: Person Motor Activity: Normal gait (with walker) Speech: Unremarkable Language: Adequate Fund of Knowledge: Inadequate Attention and Concentration: Adequate Memory: Impaired Mood: Sad Affect: Sad Thought Process & Associations: Intact, Linear Thought Content: Preoccupations (with psychosocial stressors) Hallucination Type: None Delusion Type: Paranoid (decreased) Suicidal Ideation: No Suicidal Plan: No Suicidal Intention: No Homicidal Ideation: No Homicidal Plan: No Homicidal Intention: No Insight: Poor Judgment: Poor Assessment and Plan - Assessment (1) Depression Code(s): F32.9 - Major depressive disorder, single episode, unspecified Status : Acute - Plan Plan: continue current tx plan Justification for Continued Inpatient Stay: Moving patient to a less restrictive environment may result in her decompensation.
[2017-12-07 08:50] LABS: Calcium 9.7 mg/dL (8.5-10.1)
[2017-12-07 09:02] LABS: Potassium 3.9 meq/L (3.5-5.1)
[2017-12-07] MEDS: Cholestyramine Light 4 GM Packet PO SCH ×3 (09:05→14:13)
[2017-12-07] MEDS: Amoxicillin/Clavulanate 500/125 MG Tablet PO SCH ×3 (09:08→20:53)
[2017-12-07] MEDS: QUEtiapine 25 MG Tablet PO SCH ×3 (09:09→20:54)
--- NOTE | 2017-12-07 13:15 | P.PNIM ---
Subjective Interval history: Follow up hypertension, peripheral neuropathy, obstructive sleep apnea, osteoarthritis, attention deficit disorder, anxiety and depression. Patient seen and examined lying in bed, resting. Patient c/o left shoulder pain, and left hand pain to touch, lower back pain, patient discussed again her injury of the left shoulder with surgical intervention. Patient unable to rate the pain into scale, stated had pain medication earlier but unable to tell the time. Patient with some confusion, unable to process her thought with the conversation. Nurse reported patient was ambulatory in the hallway without any signs of pain or discomfort. Patient denies any headache or dizziness, denies any nausea or vomiting, stated eating well. Patient denies any fever or chills. Physical Exam Vital signs: Vital Signs 12/06/17 19:50 12/06/17 20:00 12/07/17 06:42 Temperature 98.4 F 98.2 F Pulse Rate 69 63 Respiratory Rate 16 16 14 Blood Pressure 101/61 107/55 L Pulse Oximetry 96 96 Intake & Output 12/06/17 12/07/17 12/07/17 18:59 06:59 18:59 Intake Total 120 / 120 Balance 120 / 120 Intake: Oral 120 / 120 Narrative: GENERAL: awake, alert and oriented x 3, well built, well nourished, with no apparent distress SKIN: Warm and dry. left shoulder and bilateral knee old and healed surgical incision scars HEAD: Atraumatic. Normocephalic. EYES: Pupils equal and round. No scleral icterus. No injection or drainage. ENT: No nasal bleeding or discharge. Mucous membranes pink and moist. NECK: Trachea midline. No JVD. CARDIOVASCULAR: Regular rate and rhythm. RESPIRATORY: No accessory muscle use. Clear to auscultation. Breath sounds equal bilaterally. GASTROINTESTINAL: Abdomen soft, non-tender, nondistended. Hepatic and splenic margins not palpable. MUSCULOSKELETAL: Extremities without clubbing, cyanosis, or edema. left upper extremities limited range of motion, right hand/arm contraction NEUROLOGICAL: Awake and alert. No obvious cranial nerve deficits. generalized weakness, left upper arm with limited range of motion. Normal speech. PSYCHIATRIC: flat mood and affect; insight and judgment unrealiable, cooperative , with confusion Results - Labs CBC & Chem 7: 12/05/17 08:08 12/07/17 07:33 Laboratory Results - last 24 hr 12/07/17 07:33 Sodium 139 Potassium 3.9 Chloride 104 Carbon Dioxide 28.0 Anion Gap 7 BUN 17 Creatinine 1.28 H Estimated GFR 40 L Random Glucose 107 H Calcium 9.7 Microbiology 12/05/17 22:00 Clean Catch Urine Urine Culture - Final 50-100,000 cfu/mL mixed anjum (probable contaminants ) Assessment and Plan - Assessment (1) UTI (urinary tract infection) Code(s): N39.0 - Urinary tract infection, site not specified Status: Acute (2) Hypertension Code(s): I10 - Essential (primary) hypertension Status: Acute (3) Peripheral neuropathy Code(s): G62.9 - Polyneuropathy, unspecified Status: Acute (4) Chronic pain Code(s): G89.29 - Other chronic pain Status: Acute (5) Suicidal ideation Code(s): R45.851 - Suicidal ideations Status: Acute (6) Anxiety Code(s): F41.9 - Anxiety disorder, unspecified Status: Acute (7) Depression Code(s): F32.9 - Major depressive disorder, single episode, unspecified Status : Acute (8) Acute renal insufficiency Code(s): N28.9 - Disorder of kidney and ureter, unspecified Status: Acute - Plan This is an 82 years old female with past medical history of peripheral neuropathy, aneurysm of thoracic aorta, obstructive sleep apnea, osteoarthritis , hypertension, allergic rhinitis, attention deficit disorder, anxiety and depression, who presented to [facility] ED with the complaints of altered mental status. Patient reported to the ED staff that she "no longer wants to live" and that she was a burden to her daughter. It was also reported by the daughter the a week ago she had hallucination and believed that the SAT team was outside with her grandson who was holding a gun. The daughter reported that her suicidal ideation was not new. Patient was evaluated and treated for UTI at the [facility] ED and was transferred her to [facility] for evaluation and management hallucination and suicidal ideation. Patient is being seen by us, the Medicine team for medical management. Hypertension -BP slightly elevated on admission, better this morning, not on any blood pressure medication at home from the medication list, patient does not remember medications taking at home, blood pressure now is in the low side -monitor BP, -clonidine prn, will consider starting on Lisinopril if continue to be elevated BP Peripheral neuropathy/ left arm/hand pain Acute on chronic -hold off on home neurontin due to renal insufficiency -As needed pain medication UTI (urinary tract infection)/ symptomatic Bacteuria, s/p Rocephine x 1 -UA showing some bacteria and leukocytes, symptomatic with confusion and weakness -Started on amoxicillin clavulanate, pending culture and sensitivity. -monitor signs and symptoms Chronic pain/shoulder pain/lower back pain -verified medications from [facility] - add prn [place] -Add lidocaine patch -monitor response Acute renal insufficiency likely related to UTI -Creatinine improving -avoid nephrotixins -monitor BMP Diarrhea -Improving, stools formed today -continue questran -monitor electrolytes, BMP and Mg Hypothyroidism -TSH 1.960 -continue synthroid, - monitor TSH and T4 Attention Deficit Disorder/Anxiety/Depression/Suicidal Ideation - management by the Psychiatry Team DVT Prophylaxis: increase ambulation Code Status: Full code Discussed Condition With: Patient and nurse
[2017-12-08 06:54] LABS: Carbon Dioxide 27.7 meq/L (21.0-32.0); Potassium 3.9 meq/L (3.5-5.1)
[2017-12-08] MEDS: QUEtiapine 25 MG Tablet PO SCH ×2 (08:57→20:57)
[2017-12-08] MEDS: Amoxicillin/Clavulanate 500/125 MG Tablet PO SCH ×2 (08:58→20:57)
[2017-12-08] MEDS: Cholestyramine Light 4 GM Packet PO SCH ×3 (08:58→17:48)
--- NOTE | 2017-12-08 14:10 | P.DIET ---
Nutritional Evaluation Type of nutrition evaluation: follow-up Nutrition consult regarding: Diet Evaluation Nutrition screening: [facility] Screening comments: 12/05/17 [facility] Poor PO Intake Subjective Oral Diet Tolerance Assessment Indicates: Chewing problems, Poor intake due to pain, Poor dentition Subjective Comments: Pt. visited in her room after lunch today. Pt w/poor dentition-missing and cracked teeth. Pt asked is she has difficulty chewing and she responds yes. Pt says her teeth "hurt" and "it hurts when I chew"-discussed w/Nursing Objective - Diagnosis Unspecified Psychosis - Objective Graham body weight: 47.7 kg % IBW: 136 Body Weight Used for Calculations: IBW (47.7kg) Energy Needs - Lower Range (kCal/kg): 28 Energy Needs - Upper Range (kCal/kg): 33 Lower Limit kCal/kg (kCals): 1,336 Upper Limit kCal/kg (kCals): 1,574 Lower Limit Protein Factor (Grams per Kg): 1.2 Upper Limit Protein Factor (Grams per Kg): 1.4 Lower Protein Needs (Protein): 57 Upper Protein Needs (Protein): 67 Fluid Factor (ml/kg): 33 Estimated Fluid Needs (ml): 1,574 Dietitian Reviewed in Medical Record: Current diet, Curent medications, Intake & Output, Labs, Medical history Diet Order: Cardiac Diet Oral Diet Intake Amount: Fair 50-75% Objective Comments: PMH: Aneurysm, Anxiety, Attention Deficit DO, Depression, HTN, Osteoarthritis, Obstructive Sleep Apnea, Peripheral Neuropathy A1C 5.0, Creatinine 1.33, estGFR 38 Meds Include: [place], Questran, Cymbalta, Catapres, Seroquel, Synthroid Assessment Assessment: Pt continues at nutritional risk r/t poor po intake 50% or less for some meals here; pt also refuses some meals. Pt w/poor dentition and reports difficulty chewing and pain when chewing-discussed w/Nursing. Request for diet to be [facility] w/No Salt Packet on Tray. Send Ensure w/meals(250 kcal and 9g Protein per serving). Send Ensure Pudding w/meals(170 kcal and 4g Protein per serving). Encouraged pt to take these supplements even if she refuses a meal tray-discussed w/Nursing. Labs reviewed-monitor renal labs closely. Dietitian following. Recommendations: 1. Rec Mech Soft w/No Salt Packet on Tray 2. Send Ensure w/meals 3. Send Ensure Pudding w/meals 4. Encouraged pt to take these supplements even if she refuses a meal tray- discussed w/Nursing 5. Monitor Renal labs closely 6.Dietitian following Dietitian to Monitor: Lab values, Renal labs, Supplement acceptance, Intake & Output, Diet tolerance, Weight change, PO Intake, Medical course
[2017-12-08] MEDS: Aluminum/Magnesium/Simethacone Susp 30 ML UDC PO PRN (14:52)
--- NOTE | 2017-12-08 14:56 | P.PNIM ---
Subjective Interval history: Pt c/o of pain on her chest, stated started last night and feels like a pressure , stated worse last night than today, it was pain 0f 6 1/2 out of 10 last night , today its better at 4/10, however, patient stated she had a history of aneurysm on the ascending aorta. Patient denies any association with any nausea or vomiting, no headache or dizziness, denies any shortness of breath. Patient also c/o of pain on the lower back at 7/10, that comes and goes. , releived with pain medication, patient was not able to tell when was the last time taken. Patient denies any fever or chills Physical Exam Vital signs: Vital Signs 12/07/17 17:00 12/08/17 04:00 12/08/17 06:44 Temperature 98.2 F 98.0 F 98.0 F Pulse Rate 96 H 74 74 Respiratory Rate 16 16 16 Blood Pressure 128/86 117/59 L 117/59 L Pulse Oximetry 95 96 96 Intake & Output 12/07/17 12/08/17 12/08/17 18:59 06:59 18:59 Intake Total 960 / 960 240 / 240 Balance 960 / 960 240 / 240 Intake: Oral 960 / 960 240 / 240 Other: # Voids 4 2 Narrative: GENERAL: awake, alert and oriented x 3, well built, well nourished, with no apparent distress SKIN: Warm and dry. left shoulder and bilateral knee old and healed surgical incision scars HEAD: Atraumatic. Normocephalic. EYES: Pupils equal and round. No scleral icterus. No injection or drainage. ENT: No nasal bleeding or discharge. Mucous membranes pink and moist. NECK: Trachea midline. No JVD. CARDIOVASCULAR: Regular rate and rhythm. RESPIRATORY: No accessory muscle use. Clear to auscultation. Breath sounds equal bilaterally. GASTROINTESTINAL: Abdomen soft, non-tender, nondistended. Hepatic and splenic margins not palpable. MUSCULOSKELETAL: Extremities without clubbing, cyanosis, or edema. left upper extremities limited range of motion, right hand/arm contraction NEUROLOGICAL: Awake and alert. No obvious cranial nerve deficits. generalized weakness, left upper arm with limited range of motion. Normal speech. PSYCHIATRIC: flat mood and affect; insight and judgment unrealiable, cooperative , with confusion Results - Labs CBC & Chem 7: 12/05/17 08:08 12/08/17 05:35 Laboratory Results - last 24 hr 12/08/17 05:35 Sodium 136 Potassium 3.9 Chloride 102 Carbon Dioxide 27.7 Anion Gap 6 BUN 16 Creatinine 1.33 H Estimated GFR 38 L Random Glucose 93 Calcium 10.0 Assessment and Plan - Assessment (1) UTI (urinary tract infection) Code(s): N39.0 - Urinary tract infection, site not specified Status: Acute (2) Hypertension Code(s): I10 - Essential (primary) hypertension Status: Acute (3) Peripheral neuropathy Code(s): G62.9 - Polyneuropathy, unspecified Status: Acute (4) Chronic pain Code(s): G89.29 - Other chronic pain Status: Acute (5) Suicidal ideation Code(s): R45.851 - Suicidal ideations Status: Acute (6) Anxiety Code(s): F41.9 - Anxiety disorder, unspecified Status: Acute (7) Depression Code(s): F32.9 - Major depressive disorder, single episode, unspecified Status : Acute (8) Acute renal insufficiency Code(s): N28.9 - Disorder of kidney and ureter, unspecified Status: Acute - Plan This is an 82 years old female with past medical history of peripheral neuropathy, aneurysm of thoracic aorta, obstructive sleep apnea, osteoarthritis , hypertension, allergic rhinitis, attention deficit disorder, anxiety and depression, who presented to [facility] ED with the complaints of altered mental status. Patient reported to the ED staff that she "no longer wants to live" and that she was a burden to her daughter. It was also reported by the daughter the a week ago she had hallucination and believed that the SAT team was outside with her grandson who was holding a gun. The daughter reported that her suicidal ideation was not new. Patient was evaluated and treated for UTI at the [facility] ED and was transferred her to [facility] for evaluation and management hallucination and suicidal ideation. Patient is being seen by us, the Medicine team for medical management. Chest pain/ Hx of Thoracic aorta aneurysm without any associated symptoms of nausea or vomiting -Stat ECG, Troponin and Chest x-ray, all test negative -asa 81 mg -prn pain medications -monitor Hypertension -BP slightly elevated on admission, better this morning, not on any blood pressure medication at home from the medication list, patient does not remember medications taking at home, blood pressure now is in the low side -monitor BP, -clonidine prn, will consider starting on Lisinopril if continue to be elevated BP Peripheral neuropathy/ left arm/hand pain Acute on chronic -hold off on home neurontin due to renal insufficiency -As needed pain medication UTI (urinary tract infection)/ symptomatic Bacteuria, s/p Rocephine x 1 -UA showing some bacteria and leukocytes, symptomatic with confusion and weakness -Started on amoxicillin clavulanate, pending culture and sensitivity. -monitor signs and symptoms Chronic pain/shoulder pain/lower back pain -verified medications from [facility] - add prn [place] -Add lidocaine patch -monitor response Acute renal insufficiency likely related to UTI -Creatinine improving -avoid nephrotixins -monitor BMP Diarrhea -Improving, stools formed today -continue questran -monitor electrolytes, BMP and Mg Hypothyroidism -TSH 1.960 -continue synthroid, - monitor TSH and T4 Attention Deficit Disorder/Anxiety/Depression/Suicidal Ideation - management by the Psychiatry Team DVT Prophylaxis: increase ambulation Code Status: full code Discussed Condition With: patient and nurse
--- NOTE | 2017-12-08 15:08 | XR ---
EXAM DATE: 12/08/2017 3:04 PM EDT AGE/SEX: 82 years / Female INDICATIONS: Chest pain. CLINICAL DATA: This is the patient's initial encounter. Patient reports that signs and symptoms have been present for 1 day and indicates a pain score of 5/10. MEDICAL/SURGICAL HISTORY: None. . Stent. COMPARISON: No prior exams available for comparison. FINDINGS: A single AP view of the chest demonstrates the lungs to be symmetrically aerated without evidence of mass, infiltrate or effusion. The cardiomediastinal contours are unremarkable. Osseous structures d emonstrate degenerative changes in the left shoulder. Note is made of 2 stents that are likely within the left axillary vein. CONCLUSION: No acute cardiopulmonary findings. Incidental findings as noted above. Electronically signed by: Pastor Contreras MD 12/08/2017 3:06 PM EDT
--- NOTE | 2017-12-08 16:49 | P.TTN ---
- Patient Problems Problems: 1. Discharge planning 2. Medication compliance 3. Knowledge deficit 4. Lack of coping skills - Progress Toward Goals Provider Present: Dr. Jazlyn Lilly Provider Input: Patient will need home health and/ or sitter services as daughter works 12 hr shifts. Patient was upset and contiued with S/I prior to weekend. Psychiatric Counselors Present: Other Psychiatric Therapist Input: Jolie - Patient is seclusive, has no insight and should be able to return home with daughter. Group Spec/RT/OT/TOWNSEND Present: CARY Maldonado - Documentation Teaching Recipient: Patient
--- NOTE | 2017-12-08 22:33 | P.PNPSY ---
Subjective Remarks: Patient seen for follow, chart reviewed. Discussion nursing staff reported the patient with poor nutritional intake, refuse medications last evening continues some paranoid ideations and feels her daughter wants her to . Patient was found lying hospital bed noted B, cooperative. Patient states that people are trying to kill her last night by staff and by the other patients, reports poor sleep this evening due to the same. Patient states that today she is feeling "better" feeling less depressed denying suicide ideations at this time. Patient denies any thoughts of paranoia or that her daughter wants anything to happen to her. Review of Systems All other systems reviewed negative except as stated in HPI Mental Status Examination Appearance: Appropriate Consciousness: Alert Orientation: Person Motor Activity: Normal gait (with walker) Speech: Unremarkable Language: Adequate Fund of Knowledge: Inadequate Attention and Concentration: Adequate Memory: Impaired Mood: Anxious Affect: Anxious Thought Process & Associations: Intact, Linear Thought Content: Preoccupations Hallucination Type: None Delusion Type: Paranoid (decreased) Suicidal Ideation: No Suicidal Plan: No Suicidal Intention: No Homicidal Ideation: No Homicidal Plan: No Homicidal Intention: No Insight: Poor Judgment: Poor Assessment and Plan - Assessment (1) Unspecified psychosis Code(s): F29 - Unspecified psychosis not due to a substance or known physiological condition Status: Acute - Plan Plan: Patient noted to be paranoid earlier but nursing staff but denying during interview. Patient reported feeling less depressed, denying any suicide ideations at this time. Patient noted be paranoid about staff believing that staff and patient were trying to kill her. We will continue quetiapine at 12.5 mg a.m./25 mg at bedtime for psychosis. Continue rest of medications. Continue recommendations as her prior medical team. Discharge planning in progress. Justification for Continued Inpatient Stay: At risk of further decompensation at lower level of care.
[2017-12-09] MEDS: Amoxicillin/Clavulanate 500/125 MG Tablet PO SCH (08:06)
[2017-12-09] MEDS: Pantoprazole Sodium 20 MG DR Tablet PO SCH (08:06)
[2017-12-09] MEDS: QUEtiapine 25 MG Tablet PO SCH ×2 (08:07→20:40)
[2017-12-09] MEDS: Cholestyramine Light 4 GM Packet PO SCH ×3 (08:07→17:43)
--- NOTE | 2017-12-09 16:43 | P.PN ---
Subjective Interval history: Follow-up visit chest pain, HTN, UTI. Patient seen and examined today. States that she does not have any more chest pain or pressure-like pain in her chest but complains of shoulder pain and back pain which she states that it has significantly improve with medications that she was given. Denies fevers, chills, nausea, vomiting. Denies shortness of breath or dyspnea. Denies palpitations, headaches, dizziness. Physical Exam Vital signs: Vital Signs 12/08/17 18:15 12/09/17 05:55 Temperature 98.1 F 97.9 F Pulse Rate 98 H 78 Respiratory Rate 16 17 Blood Pressure 111/71 127/66 Pulse Oximetry 92 L 95 Intake & Output 12/08/17 12/09/17 12/09/17 18:59 06:59 18:59 Intake Total 480 / 480 Balance 480 / 480 Intake: Oral 480 / 480 Other: # Voids 3 Narrative: GENERAL: This is a well-nourished, well-developed patient, in no apparent distress. SKIN: Warm and dry HEENT: Normocephalic. Pupils equal round and reactive. Nose without bleeding. Airway patent. NECK: Trachea midline. CARDIOVASCULAR: Regular rate and rhythm without murmurs, gallops, or rubs. RESPIRATORY: Clear to auscultation. Breath sounds equal bilaterally. No wheezes , rales, or rhonchi. GASTROINTESTINAL: Abdomen soft, non-tender, nondistended. Bowel Sounds normoactive x4. MUSCULOSKELETAL: Extremities without clubbing, cyanosis. Bilateral lower extremity trace edema. Left hand deformity, smaller than the right hand. Left upper extremity limited range of motion, tenderness to palpate. NEUROLOGICAL: Awake and alert. No focal neuro deficit. Moves all extremities. Mild expressive aphasia. Results - Labs CBC & Chem 7: 12/05/17 08:08 12/08/17 05:35 Assessment and Plan - Assessment (1) UTI (urinary tract infection) Code(s): N39.0 - Urinary tract infection, site not specified Status: Acute (2) Hypertension Code(s): I10 - Essential (primary) hypertension Status: Acute (3) Peripheral neuropathy Code(s): G62.9 - Polyneuropathy, unspecified Status: Acute (4) Chronic pain Code(s): G89.29 - Other chronic pain Status: Acute (5) Suicidal ideation Code(s): R45.851 - Suicidal ideations Status: Acute (6) Anxiety Code(s): F41.9 - Anxiety disorder, unspecified Status: Acute (7) Depression Code(s): F32.9 - Major depressive disorder, single episode, unspecified Status : Acute (8) Acute renal insufficiency Code(s): N28.9 - Disorder of kidney and ureter, unspecified Status: Acute - Plan Patient is 82-year-old female with past medical history of peripheral neuropathy , LYNN, ADD, anxiety, depression who initially came into [facility] ED for complaints of altered mental status. Patient indicated no longer wants to live as she is a burden to her daughter. She is now admitted to inpatient psychiatry and further evaluation. Attention Deficit Disorder/Anxiety/Depression/Suicidal Ideation -management by the Psychiatry Team Chest pain/ Hx of Thoracic aorta aneurysm -ECG, Troponin and Chest x-ray, all test negative -Asa 81 mg given -Denies any chest pain. UTI (urinary tract infection)/ symptomatic Bacteuria, s/p Rocephine x 1 -UA showing some bacteria and leukocytes, symptomatic with confusion and weakness -Started on amoxicillin clavulanate, mixed gram anjum. -Discontinue Augmentin Chronic pain/shoulder pain/lower back pain Peripheral neuropathy/ left arm/hand pain Acute on chronic -[id number] Prescription Drug Monitoring Database has been queried and verified prior to prescribing the controlled substance. -[place] PRN -Add lidocaine patch -Restart Neurontin at a lower dose. Acute renal insufficiency and possibly chronic kidney disease -Avoid nephrotoxin -Monitor renal indicis intermittently Diarrhea -continue questran -No diarrhea reported Hypothyroidism -TSH 1.960 -continue Synthroid DVT Prophylaxis ambulation Stable from Hospitalist standpoint. We will sign off. Reconsult as needed. Thank you. Code Status: Full code Discussed Condition With: Patient, nursing Discharge Planning: DC disposition by primary team
--- NOTE | 2017-12-09 17:44 | ECG ---
Date Performed: 12/08/2017 Time Performed: 15:33:17 PTAGE: 82 years EKG: Sinus rhythm MARKED LEFT AXIS DEVIATION MODERATE VOLTAGE CRITERIA FOR LVH, CONSIDER NORMAL VARIANT CONSIDER ANTER OLATERAL AND INFERIOR MYOCARDIAL INFARCTION , OF INDETERMINATE AGE ABNORMAL ECG NO PREVIOUS TRACING DOCTOR: Darin Pearce Interpretating Date/Time 12/09/2017 18:05:50
[2017-12-09 18:24] VITALS: RESP 18
[2017-12-09] MEDS: Gabapentin 300 MG Capsule PO SCH (20:41)
--- NOTE | 2017-12-09 22:58 | P.PNPSY ---
Subjective Remarks: Patient seen for follow up; chart reviewed. Discussion with nursing staff reported that patient noted to be improving, rambles at times, had chest discomfort yesterday which EKG and troponins were negative and chest pain resolved. Patient was found lying on hospital bed, noted to be calm and cooperative. Patient states being no longer frightened that people ewre going to kill her. She reports sleeping better, improved appetite. Mood is good, feeling less depressed, denying suicidal ideations. She states wanting to go live at an [place] [facility] and that she cannot live with her daughter any longer. Review of Systems All other systems reviewed negative except as stated in HPI Mental Status Examination Appearance: Appropriate Consciousness: Alert Orientation: Person Motor Activity: Normal gait (with walker) Speech: Unremarkable Language: Adequate Fund of Knowledge: Inadequate Attention and Concentration: Adequate Memory: Impaired Mood: Good Affect: Anxious Thought Process & Associations: Intact, Linear Thought Content: Preoccupations Hallucination Type: None Delusion Type: Paranoid (decreased) Suicidal Ideation: No Suicidal Plan: No Suicidal Intention: No Homicidal Ideation: No Homicidal Plan: No Homicidal Intention: No Insight: Poor Judgment: Poor Assessment and Plan - Assessment (1) Unspecified psychosis Code(s): F29 - Unspecified psychosis not due to a substance or known physiological condition Status: Acute - Plan Plan: [place] with noted less anxiety and paranoia, noted with less depressed mood and denying any SI today. Continue current treatment, continue to monitor mood and behavior. Will order PT and OT eval. Discharge planning in progress. Justification for Continued Inpatient Stay: At risk for further decompensation at lower level of care.
[2017-12-10 06:14] VITALS: BP 120/71; PULSE 93; TEMP 97.8; O2SAT 96
[2017-12-10] MEDS: Pantoprazole Sodium 20 MG DR Tablet PO SCH (08:23)
[2017-12-10] MEDS: QUEtiapine 25 MG Tablet PO SCH (08:23)
[2017-12-10] MEDS: Cholestyramine Light 4 GM Packet PO SCH ×2 (08:23→12:12)
[2017-12-10] MEDS: Gabapentin 300 MG Capsule PO SCH (08:24)
[2017-12-10] MEDS: Aluminum/Magnesium/Simethacone Susp 30 ML UDC PO PRN (11:53)
--- NOTE | 2017-12-10 13:15 | P.DSPSY ---
Psychiatry Discharge Summary Inpatient Psychiatric care?: Yes Advance Directives: Unknown Reason for Unknown:: Other Mental Health Advance Directive: No Health Care Proxy: No - Admission Admission Date: December 04, 2017 00:30 Brief History: Patient is a 82-year-old woman, , has 1 daughter, domiciled with daughter, with a past psychiatric history of depression and anxiety, no previous psychiatric admissions, no previous suicide attempts no history of self -injurious behavior, no substance use history, past mental history significant for peripheral neuropathy, aneurysm of thoracic aorta, obstructive sleep apnea, osteoarthritis, hypertension, allergic rhinitis, who presented to [facility] ED with the complaints of altered mental status, hallucinations and suicidal ideation in the context of recent UTI which patient was admitted to the inpatient psychiatry unit for further evaluation and management. As per chart patient was transferred from [facility] after having been sent to the ED from primary care office. Discussion with nursing staff reported that patient had been noted to be tearful throughout the day. Patient was found heavily on unit noted B, cooperative. Patient states that she has not slept for days (-) stating "I am nervous about myself and I cannot remember stuff" . Patient reports having decreased energy appetite along with some loose stool that her mood has been "terrible, sad". Patient states that her worry is that her daughter will lose the house. Patient states that she had been thinking about hoping to sleep left lower taker. Patient states that she would have Medicare Medicaid she would have the services at home and would not have these thoughts of wanting to be any longer. Collateral information obtained by patient's daughter stated that the patient for the past week has been hallucinating, having visual hallucinations patient's father in the hallway and noticing recently having to require assistance more and more. She states that patient would be able to do less and less in terms of activities. He reports that yesterday she had suicidal ideation and had taken patient to her primary care doctor who recommended patient be brought to the ED. Family psychiatric history: Daughter with bipolar disorder, father with schizophrenia, no suicides in the family. Past psychiatric history: Previous psychiatric diagnoses depression and anxiety , no prior psychiatric admissions, suicide attempts or self-injurious behavior. Patient denies any history of abuse. Currently without any mental provider, reports previously being on Cymbalta and Xanax in the past. Past Hernandez history: Hypertension, hypothyroidism Allergies: NKDA Social history: , has 1 daughter whom she lives with. Collateral contact: Brittney Lazar (daughter) [phone]. Tobacco Use In Past 30 Days: No How Often Do You Have a Drink Containing Alcohol: Never Hospital Course: She has hospital course was uneventful, she showed progressive improvement through her stay. His of today patient alert oriented calm pleasant denying suicidality homicidality voice or visions. Is aware of her need to go to rehab , patient's daughter is involved and supportive, at this time patient no longer meets criteria for inpatient psychiatric care thus patient will be discharged today to [facility] and to follow up at that facility and with her primary care physician. Rx times 1 month - Discharge Discharge Date: 12/10/17 - Discharge Diagnosis (1) Unspecified psychosis Code(s): F29 - Unspecified psychosis not due to a substance or known physiological condition Status: Acute Discharge Disposition: Inpatient Rehab Unit - Discharge Instructions Discharge Diet: Regular Diet Activities You Can Perform: Regular- No Restrictions - Discharge Time > 30 minutes Mental Status Examination Appearance: Appropriate Consciousness: Alert Orientation: Person Motor Activity: Normal gait (with walker) Speech: Unremarkable Language: Adequate Fund of Knowledge: Inadequate Attention and Concentration: Adequate Memory: Impaired Mood: Good Affect: Anxious Thought Process & Associations: Intact, Linear Thought Content: Preoccupations Hallucination Type: None Delusion Type: Paranoid (decreased) Suicidal Ideation: No Suicidal Plan: No Suicidal Intention: No Homicidal Ideation: No Homicidal Plan: No Homicidal Intention: No Insight: Poor Judgment: Poor Discharge/Advance Care Plan - Results Vital Signs: Last Vital Signs Temp 97.8 F 12/10/17 06:00 Pulse 93 H 12/10/17 06:00 Resp 18 12/10/17 06:00 BP 120/71 12/10/17 06:00 Pulse Ox 96 12/10/17 06:00 Lab Results: Laboratory Results Hemoglobin A1c 5.0 % (4.3-6.0) 12/04/17 09:47 TSH 1.960 uIU/mL (0.358-3.740) 12/04/17 09:47 Free T4 1.12 ng/dL (0.76-1.46) 12/04/17 09:47 Urine Culture Comments Culture indicated 12/05/17 22:00 Summary of Procedures: None done Imaging: ITS Impressions Chest X-Ray 12/08/17 14:42 CONCLUSION: No acute cardiopulmonary findings. Incidental findings as noted above. Pending Results: None - Medications Number of antipsychotic medications at discharge: 1 - Discharge Care Plan Goals to Promote Your Health: * To prevent worsening of your condition and complications * To maintain your health at the optimal level Directions to Meet Your Goals: Take your medications as prescribed Follow your dietary instruction Follow activity as directed Keep your appointments as scheduled Take your immunizations and boosters as scheduled If your symptoms worsen call your PCP, if no PCP go to Urgent Care Center or Emergency Room For 07/10 questions related to your inpatient stay or results of tests pending at discharge, please contact Dr. Norberto Celeste MD at Smoking is Dangerous to Your Health. Avoid second hand smoking
== END 2017-12-10 16:14 ==
LOC: H250 12-04 00:30
PROVIDERS: ADMIT Student in an Organized Health Care Education/Training Program; ATTEND Student in an Organized Health Care Education/Training Program